=== PATIENT | male | born 1960 | race Caucasian/White ===

== ENCOUNTER 2019-07-25 00:15 | Outpatient (CLI) | payer BC, SELFPAY ==
[2019-07-25 17:33] LABS: SARS-CoV-2 RNA PCR Negative
== END 2019-07-25 00:16 | disposition home or self-care (01) ==
LOC: ANHCOVIDDT 00:15
PROVIDERS: Visit Provider Podiatrist Foot & Ankle Surgery
DX: Z01.812 Encounter for preprocedural laboratory examination (principal); Z20.828 Contact with and (suspected) exposure to other viral communicable diseases
CPT/HCPCS: 87635; C9803; U0003

== ENCOUNTER 2019-07-25 09:08 | Outpatient (CLI) | payer BC, SELFPAY ==
--- NOTE | 2019-07-25 09:11 | ECG_ITS ---
Measurements Intervals [facility] Rate: 67 P: 51 IN: 193 QRS: 14 QRSD: 105 T: 19 QT: 393 QTc: 415 Interpretive Statements SINUS RHYTHM DELAYED PRECORDIAL R/S TRANSITION BASELINE ARTIFACT- I, II, AVR BORDERLINE ECG Electronically Signed On 07-25-2019 9:20:29 CDT by Gopi Lu D.O.
== END 2019-07-25 09:09 | disposition home or self-care (01) ==
LOC: ANHSURGERY 09:11
PROVIDERS: PCP Internal Medicine; Visit Provider Podiatrist Foot & Ankle Surgery
DX: I10 Essential (primary) hypertension (principal); R94.31 Abnormal electrocardiogram [ECG] [EKG]
CPT/HCPCS: 93005

== ENCOUNTER 2019-07-27 01:19 | Day surgery (SDC) | payer BC, SELFPAY ==
[2019-07-16 14:19] VITALS: BMI 31.0
--- NOTE | 2019-07-27 07:19 | WPDHPUPDATE1 ---
History and Physical Update Update Date/Time: 07/27/19 07:19 History and Physical has been reviewed, including an updated exam of the patient. There are NO changes in the patient's condition. Risks, benefits, and alternatives have been discussed and questions answered. Patient agrees to proceed with procedure.
[2019-07-27] MEDS: LACTATED RINGERS 1,000 ML 30 ML IV CONT ×2 (08:02→10:47)
[2019-07-27 08:08] VITALS: BP 122/90; PULSE 78; RESP 20; TEMP 36.2; O2SAT 99
--- NOTE | 2019-07-27 08:11 | P.PNAN_ITS ---
Anes - Initial Pre Proc Eval Procedure: Operation Date: 07/27/19 09:30 Proposed Procedures p Excision Piper's Neuroma Left Foot - Jeff Valenzuela JR, MD Date/Time: 07/27/19 08:11 Surgeon: Jeff Valenzuela JR, MD Pre Op Diagnosis: mortons neuroma left foot Patient Data Age: 58 Gender: M Height: 5 ft 9 in Weight: 93.6 kg Last Vital Signs Temp 36.2 C L 07/27/19 08:08 Pulse 78 07/27/19 08:08 Resp 20 07/27/19 08:08 BP 122/90 07/27/19 08:08 Pulse Ox 99 07/27/19 08:08 Allergies Allergy/AdvReac Type Severity Reaction Status Date / Time No Known Allergies Allergy Verified 07/16/19 14:11 Home Medications Medication Instructions Recorded Confirmed Type cholecalciferol (vitamin D3) 1,000 unit PO DAILY 02/22/19 07/27/19 History [Vitamin D3] ezetimibe [Zetia] 10 mg PO HS 02/22/19 07/27/19 History multivitamin [Daily Multiple] 1 tablet PO DAILY 02/22/19 07/27/19 History naproxen sodium 440 mg PO HS PRN 02/22/19 07/27/19 History olmesartan 20 mg PO QAM 02/22/19 07/27/19 History [id number]-epa-fish oil [Fowler-3 1,000 cap PO DAILY 02/22/19 07/27/19 History Fish Oil] Patient hx anesthesia problems: none Family hx anesthesia problems: none [facility] Past Medical History Medical History Hyperlipidemia Hypertension Anes - Eval Final PreProcedure Day of Procedure 07/27/19 08:11 Patient weight: obese Heart: regular rate and rhythm Lungs: clear to auscultation Airway: Mallampati scale class II Neurological: alert and oriented Last oral intake: >/= 8 hours ASA classification: II Emergent: no Anesthetic plan: proceed Anesthesia type and monitoring: general LMA and standard monitoring Informed Consent: The patient's anesthetic plan and its attendant risks and benefits were discussed with the patient/family/POA. Questions were solicited and answers provided to the satisfaction of the patient/family/POA.
[2019-07-27] MEDS: ceFAZolin 2 GM/D5W 50 ML 2 GM/50 ML BAG IVPB (10:00)
[2019-07-27] MEDS: LIDOCAINE HCL 2% LOCAL INJ 20 ML VIAL INFILTRATE (10:27)
[2019-07-27] MEDS: KETOROLAC 30 MG/ML VIAL (*BKC) IV PUSH (10:34)
[2019-07-27 10:47] VITALS: BP 99/62; PULSE 72; RESP 12; O2SAT 92
--- NOTE | 2019-07-27 10:59 | PM.OP ---
Procedure Note - Brief Procedure Note - Brief Date of procedure: 07/27/19 Pre-op diagnosis: mortons neuroma left foot Post-op diagnosis: same Procedure performed: Excision of Piper's Neuroma left foot Anesthesia: MAC and local Surgeon: Jeff Valenzuela JR, DPM Estimated blood loss (mL): 1 Complications: No immediate complications Condition: stable Disposition: same day
[2019-07-27 11:15] VITALS: BP 115/85; PULSE 64; RESP 12; O2SAT 92
[2019-07-27 11:45] VITALS: BP 115/91; PULSE 62; RESP 12
--- NOTE | 2019-07-27 18:12 | OP_ITS ---
DATE OF PROCEDURE: 07/27/2019 PREOPERATIVE DIAGNOSIS: Piper's neuroma, left foot. POSTOPERATIVE DIAGNOSIS: Piper's neuroma, left foot. PROCEDURE: Excision of Piper's neuroma, left foot. PATHOLOGY: Piper's neuroma, left foot, sent for gross and histopathology. ANESTHESIA: MAC with local. HEMOSTASIS: Pneumatic ankle tourniquet at 250 mmHg. ESTIMATED BLOOD LOSS: Minimal. MATERIALS USED: 4-0 Vicryl and 4-0 Monocryl. INJECTABLES: 20 cc of 1:1 mixture of 2% lidocaine plain and 0.5% Marcaine plain injected preoperatively. COMPLICATIONS: None. PROCEDURE IN DETAIL: Under mild sedation, the patient was brought to the operating room and placed on the operating room table in the supine position. Pneumatic ankle tourniquet was placed about the patient's left ankle. Following IV sedation, local anesthesia was obtained about the left ankle utilizing 20 cc of a 1:1 mixture of 2% lidocaine plain and 0.5% Marcaine plain. The foot was then scrubbed, prepped, and draped in the usual aseptic manner. An Esmarch bandage was then used to examine the patient's left foot and pneumatic ankle tourniquet was then inflated. Attention was directed to the 3rd intermetatarsal space of the left foot where a 3 cm linear longitudinal incision was made beginning distally at the webspace of the intermetatarsal area and extending proximally. The incision was deepened through the subcutaneous tissues using sharp and blunt dissection retracting all vital neurovascular structures. All bleeders were cauterized and ligated as necessary. At this time, dissection was continued deep down to the 3rd interspace using blunt dissection until the atrophic white/yellow fibrotic neural tissue mass of the 3rd common plantar nerve was initially identified beneath the intermetatarsal ligament. After initial identification, the hypertrophied soft tissue neural mass was followed distally to the point of its bifurcation into the proper plantar digital nerves. The proper plantar digital nerves were tracked as far as distally as possible and severed. The neural mass was then dissected as far proximal as possible, from its soft tissue surroundings and severed. At this time, the entire soft tissue neural mass was resected and passed from the operative field in toto. The wound was then inspected for any remaining hypertrophied neural tissue and none was found. The wound was flushed with copious amounts of sterile saline. The subcutaneous tissues were reapproximated and coapted utilizing 4-0 Vicryl. Next, the skin was reapproximated and coapted utilizing 4-0 Monocryl in running subcuticular suture fashion technique. Upon completion of the procedure, a total of 5 more cc of 2% lidocaine plain was infiltrated about the incision site. Incision was then dressed with Steri-Strips, Adaptic, 4 x 4s, Kerlix, and Coban. The pneumatic ankle tourniquet was then deflated and a prompt hyperemic response was noted to all digits of the left foot. A CAM walker boot was then applied. The patient did very well with the procedure and anesthesia. He was transferred to the recovery room with vital signs stable and vascular status intact to all toes of the left foot. Following a period of postoperative monitoring, the patient will be discharged home on the following written and oral postoperative instructions: 1. Keep the dressing clean, dry, and intact. 2. Avoid excessive ambulation. 3. Ice and elevate the left foot when at rest. 4. Wear CAM walker boot at all times with ambulating. 5. Contact Dr. Valenzuela for all postop care and if any problems arise. 6. Prescriptions were written for Percocet 5/325 dispensed 40 to be taken 1 p.o. q.4 to 6 hours as needed for severe pain. D I Job #: [id number]
== END 2019-07-27 12:05 | disposition home or self-care (01) ==
PROVIDERS: PCP Internal Medicine; Visit Provider Podiatrist Foot & Ankle Surgery
PROC: (CPT 28080; principal; 2019-07-27 09:30)
DX: G57.62 Lesion of plantar nerve, left lower limb (principal); I10 Essential (primary) hypertension; E78.5 Hyperlipidemia, unspecified; E66.9 Obesity, unspecified; Z68.30 Body mass index [BMI] 30.0-30.9, adult
CPT/HCPCS: 28080; 88304; J0690; J1100; J1885; J2250; J2405; J2704; J3010; J7120